=== PATIENT | female | born 1950 | race Caucasian/White ===

== ENCOUNTER 2025-01-18 18:00 | Emergency (ER) | payer MEDICARE, BC | END 2025-01-18 21:15 | disposition home or self-care (01) | LOC: JP.ED 18:00 | DX: S90.31XA Contusion of right foot, initial encounter (principal); I10 Essential (primary) hypertension; W31.9XXA Contact with unspecified machinery, initial encounter | CPT/HCPCS: 73630-26-RT; 73630-RT; 73700-RT; 76377; 99284 ==